=== PATIENT | female | born 1995 ===

== ENCOUNTER 2024-06-04 09:18 | Emergency (ER) | payer OTHER ==
[~2024-06-04] VITALS: Ht 162.6 cm; Wt 59.0 kg
[2024-06-04 10:13] VITALS: TEMP 98.2
[2024-06-04 11:15] VITALS: BP 112/75; PULSE 86; RESP 16; O2SAT 99
== END 2024-06-04 11:33 ==
LOC: EMS 09:18
DX: Z03.821 Encounter for observation for suspected ingested foreign body ruled out (principal)
CPT/HCPCS: 71250; 72192; 74150; 74176; 84703; 99284; Z7502